=== PATIENT | male | born 1985 | race American Indian/Alaskan Native ===

== ENCOUNTER 2016-11-10 12:20 | Emergency (ER) | payer OTHER ==
[2016-11-10 12:34] VITALS: BP 140/77; PULSE 72; RESP 16; TEMP 96; O2SAT 99
--- NOTE | 2016-11-10 12:46 | ED PDOC ---
HPI: Skin/Bite Injury Time Seen by Provider: 11/10/16 12:36 Chief Complaint (Nursing): Abnormal Skin Integrity Chief Complaint (Provider): cold sore Additional Complaint(s): Patient presents to ED with painful cold sore to right upper lip x 2 days. He has been using abreva for 2 days but this has not helped. Patient denies any fever. He is tolerating liquids and solids. Past Medical History Reviewed: Historical Data, Nursing Documentation, Vital Signs Vital Signs: Last Vital Signs Temp 96.0 F L 11/10/16 12:33 Pulse 72 11/10/16 12:33 Resp 16 11/10/16 12:33 BP 140/77 11/10/16 12:33 Pulse Ox 99 11/10/16 12:33 - Medical History PMH: No Chronic Diseases - Surgical History Surgical History: No Surg Hx - Family History Family History: States: No Known Family Hx - Living Arrangements Living Arrangements: With Family - Social History Current smoker - smoking cessation education provided: Yes Alcohol: None Drugs: Denies - Home Medications Home Medications: Ambulatory Orders Medication Instructions Recorded Ibuprofen [Motrin Tab] 800 mg PO Q8 PRN #20 tab 11/10/16 - Allergies Allergies/Adverse Reactions: Allergies Allergy/AdvReac Type Severity Reaction Status Date / Time No Known Allergies Allergy Verified 11/10/16 12:33 Review of Systems ROS Statement: Except As Marked, All Systems Reviewed And Found Negative Constitutional: Negative for: Fever ENT: Positive for: Other (cold sore to right upper lip) Respiratory: Negative for: Cough Gastrointestinal: Negative for: Vomiting Physical Exam - Reviewed Nursing Documentation Reviewed: Yes Vital Signs Reviewed: Yes - Physical Exam Appears: Positive for: Well, Non-toxic, No Acute Distress Skin: Negative for: Rash Eye Exam: Positive for: Normal appearance ENT: Positive for: Other (herpes labialis right upper lip, no acute suppurative infection) Neck: Positive for: Normal Cardiovascular/Chest: Positive for: Regular Rate, Rhythm Respiratory: Positive for: Normal Breath Sounds Neurologic/Psych: Positive for: Oriented - ECG O2 Sat by Pulse Oximetry: 99 Pulse Ox Interpretation: Normal Medical Decision Making Medical Decision Making: Impression: herpes labialis Plan: PO motrin Rx motrin, patient was instructed to continue with abreva. Patient was referred to clinic for follow up. Disposition - Clinical Impression Clinical Impression: Herpes labialis - Patient ED Disposition Is Patient to be Admitted: No Counseled Patient/Family Regarding: Diagnosis, Need For Followup, Rx Given - Disposition Referrals: [facility] [Outside] Disposition: Routine/Home Disposition Time: 12:56 Condition: STABLE Additional Instructions: Take rx meds as directed. Keep area clean and dry. Follow up with clinic in 2- 3 days. Prescriptions: Ibuprofen [Motrin Tab] 800 mg PO Q8 PRN #20 tab PRN Reason: Pain, Moderate (4-7) Instructions: Oral Herpes Simplex Virus Infections (ED) Forms: [email or web address] [facility] ([place]ic), [facility] ED School/Work Excuse
== END 2016-11-10 13:13 | disposition home or self-care (01) ==
LOC: H.ER 12:20
DX: B00.1 Herpesviral vesicular dermatitis (principal)